=== PATIENT | male | born 1975 | race Caucasian/White ===

== ENCOUNTER 2023-09-18 16:55 | Emergency (ER) | payer MEDICAID, SELFPAY ==
--- NOTE | ~2023-09-18 | XR_ITS ---
EXAMINATION: XR FOOT, RIGHT CLINICAL INFORMATION: Right big toe pain. COMPARISON: None available. TECHNIQUE: AP, lateral, and oblique views of the right foot. FINDINGS: The bones and soft tissues are normal. No fracture. Alignment is anatomic. Joint spaces are maintained. XR/XR foot RT 2V IMPRESSION: Unremarkable right foot exam
[2023-09-18 17:01] VITALS: BP 128/96; PULSE 82; O2SAT 97
[2023-09-18 17:18] VITALS: BP 93/60; PULSE 73; RESP 16; TEMP 36.7; O2SAT 98; BMI 31.0
[2023-09-18 17:28] LABS: Appearance Urine Clear; Color Urine Yellow; Glucose Urine UA Negative (Negative); Leukocyte Esterase Urine Negative (Negative); Nitrite Urine Negative (Negative); PH 5.5 (5.0-9.0); Specific Gravity - Urine >= 1.030 (1.005-1.025); UMIC TRIGGER UACC YES; Urine Blood Trace (Negative); Urine Ketones Trace mg/dL (Negative); Urine Protein Trace mg/dL (Neg-Trace)
[2023-09-18 17:33] LABS: Amphetamine Screen Urine Not Detected (Not Detect); Bacteria Urine None Seen (None Seen); Barbiturates, Urine Not Detected (Not Detect); Benzodiazepines Screen Urine Not Detected (Not Detect); Cannabinoid Screen Urine POSITIVE (Not Detect); Cocaine Screen Urine POSITIVE (Not Detect); Fentanyl, urine Not Detected (Not Detect); Hyaline Casts Urine 0-2 /LPF (0-2); Opiate Screen Urine Not Detected (Not Detect); Phencyclidine Screen Urine Not Detected (Not Detect); Squamous Epithelial Cell Urine 0-2 /HPF (0-2); WBC Urine 0-5 /HPF (0-5)
--- NOTE | 2023-09-18 17:50 | PC.NURSE ---
assumed care of pt at 1720- pt agitated, demanding a room with a television. advised current exam room is the only exam room available at this time. pt stated to nurse dont given me a needle advised pt needs eval before we can give anything. pt requests war blanket, provided. NAHUM Bustillos to bedside explaining treatment. pt then stated he dont understand anything lmsw called to bedside.
--- NOTE | 2023-09-18 17:51 | PC.NURSE ---
per NAHUM Bustillos rec call from karthikeyan betancourt pt refused insulin coverage [employer]
--- NOTE | 2023-09-18 17:59 | ED_ITS ---
HPI - General Adult General Chief complaint: Extremity Injury, Lower Stated complaint: Gout Time Seen by Provider: 09/18/23 17:20 Source: patient Mode of arrival: ambulatory Limitations: no limitations History of Present Illness HPI narrative: 48-year-old male history of diabetes and asthma presents to ED for left big toe pain and swelling for the past 3 days. Patient denies any trauma to extremity. Patient states no fever, chills, leg swelling, calf pain, chest pain, shortness of breath. Patient denies any wounds or lower extremity. Related Data Previous Rx's Medication Instructions Recorded colchicine 0.6 mg capsule 0.6 mg PO BID 4 days #8 caps 09/18/23 indomethacin 50 mg capsule 50 mg PO TID 5 days #15 caps 09/18/23 prednisone 20 mg tablet 40 mg (2 x 20 mg) PO DAILY 5 days 09/18/23 #10 tabs Allergies Allergy/AdvReac Type Severity Reaction Status Date / Time No Known Allergies Allergy Unverified 05/03/20 19:02 [No Known Allergies*] Review of Systems 2 Review of Systems: Right big toe pain Yes all other systems are reviewed and are negative [facility] Social History Social History Advance Directives: No Advance Directives Information Provided: No Physical Exam ED Vital Signs: Vital Signs - 24 hr 09/18/23 17:18 09/18/23 18:48 Temperature 98.1 F 97.8 F Pulse Rate 73 60 Respiratory Rate 16 18 Blood Pressure 93/60 100/66 Pulse Oximetry 98 97 Oxygen Delivery Method Room Air Room Air BMI result Body Mass Index 31.0 Const General: cooperative, healthy appearing, comfortable, no acute distress, well developed, alert, awake and Physically active Orientation/consciousness: oriented to person, oriented to place, oriented to time and patient oriented x3 HENMT Head: Yes normal to inspection, Yes No palpable skull fracture present, Yes normocephalic and Yes atraumatic Eyes General: appearance normal, both eyes and all related structures Neck Neck: Yes normal visual inspection, Yes full ROM, Yes no lymphadenopathy, Yes no meningeal signs, Yes trachea midline, Yes supple, No anterior neck swelling and No tender Chest Chest palpation & inspection: normal inspection of the chest and normal palpation of entire chest wall Resp Effort & Inspection: normal respiratory effort and able to speak in complete sentences Auscultation: clear to auscultation bilaterally Cardio Jugular venous distension: no JVD Heart sounds: S1 normal heart sound present and S2 normal heart sound present GI Inspection: Yes normal to inspection Palpation (GI): Soft to palpation, not firm, nontender, no guarding and not rigid General: Yes no CVA tenderness Back/Spine/Pelvis Back: no CVA tenderness and No back tenderness Skin General skin exam: no rashes or lesions noted, elasticity normal and turgor normal Neuro General: oriented to person, oriented to place, oriented to time, patient oriented x3, gait normal, tone normal, moves all extremities, Normal light touch and pain sensation, no meningeal signs, no focal motor deficits, CN's II-XI intact bilaterally and normal sensation to monofilament Extrem General: Yes normal to inspection, Yes full ROM and Yes capillary refill normal Ankle/foot/toe images: 2 1. positive for tenderness on palpation. Positive for swelling. Negative for erythema. Negative for ulcers, open wounds, pus discharge, foul odor, bluish black discoloration. Motor/neuro /vascular exam of extremity intact. Negative for calf pain or leg swelling. Rest of extremity normal Psych Appearance: grossly normal, well kempt and not disheveled Medications Administered Discontinued Medications Generic Name Dose Route Start Last Admin Trade Name Freq PRN Reason Stop Dose Admin Colchicine 1.2 mg 09/18/23 18:53 09/18/23 19:33 Colchicine 0.6 Mg Tablet PO 09/18/23 18:54 1.2 mg ONCE ONE Administration Indomethacin 50 mg 09/18/23 18:53 09/18/23 19:33 Indomethacin 25 Mg Capsule PO 09/18/23 18:54 50 mg ONCE ONE Administration Prednisone 60 mg 09/18/23 18:53 09/18/23 19:34 Prednisone 20 Mg Tablet PO 09/18/23 18:54 60 mg ONCE ONE Administration Medical Decision Making Medical Decision Making [facility] Narrative: 48-year-old male history diabetes and asthma presents to ED for right big toe pain. Most likely gout. Patient will be sent for x-ray to rule out fracture. 6:59pm: Foot x-ray negative for fracture. Patient will be treated as gout. Patient given 1st dose of indomethacin causes itching and prednisone ordered Differential Diagnosis Differential Diagnoses: The differential diagnosis associated with the presentation includes ( gout, cellulitis, fracture) Admission/Observation Consideration of admission/observation: Escalation of care including admission/observation considered Lab Data [facility] Lab Attestation statement: I reviewed the patient's lab results. Labs: Lab Results 09/18/23 Range/Units 17:15 Urine Color Yellow Urine Appearance Clear Urine pH 5.5 (5.0-9.0) Ur Specific [place] >= 1.030 H (1.005-1.025) Urine Protein Trace (Neg-Trace) mg/dL Urine Glucose (UA) Negative (Negative) mg/dL Urine Ketones Trace (Negative) mg/dL Urine Blood Trace H (Negative) Urine Nitrite Negative (Negative) Ur Leukocyte Esterase Negative (Negative) Urine RBC 6-10 H (0-2) /HPF Urine WBC 0-5 (0-5) /HPF Ur Squamous Epith Cells 0-2 (0-2) /HPF Urine Bacteria None Seen (None Seen) Hyaline Casts 0-2 (0-2) /LPF Urine Opiates Screen Not Detected (Not Detect) Urine Fentanyl Screen Not Detected (Not Detect) Ur Barbiturates Screen Not Detected (Not Detect) Ur Phencyclidine Scrn Not Detected (Not Detect) Ur Amphetamines Screen Not Detected (Not Detect) U Benzodiazepines Scrn Not Detected (Not Detect) Urine Cocaine Screen POSITIVE H (Not Detect) U Marijuana (THC) Screen POSITIVE H (Not Detect) Independent Interpretation I performed an independent interpretation of an: Plain X-Ray Radiology Impression Discussion of test interpretation with radiology: I have reviewed the radiologist's reading. External Record Review External record reviewed: Other (prior visits) Prescription Management I considered prescription management with: Pain Medication Discharge Plan Discharge Clinical Impression: Gout Patient Disposition: Home, Self-Care Instructions: Gout (ED) Additional Instructions: recommend follow-up with your primary care. return to the ED immediately for worsening pain, swelling he, redness, inability to walk, open wounds, pus discharge, foul odor, ulcers, fever, chills, or any other concerning symptoms. Prescriptions: New indomethacin 50 mg capsule 50 mg PO TID 5 Days Qty: 15 0RF Rx Instructions: administer with food or milk prednisone 20 mg tablet 40 mg PO DAILY 5 Days Qty: 10 0RF colchicine 0.6 mg capsule 0.6 mg PO BID 4 Days Qty: 8 0RF Interventions: ED Discharge Assessment Last Done: 09/18/23 21:32 Discharge Date/Time: 09/18/23 21:33 Print Language: Mongolian
--- NOTE | 2023-09-18 18:13 | PC.NURSE ---
attempted to offer pt food/beverage. pt did not repond to nurse, and covered head with blanket. care ongoing.
[2023-09-18 18:48] VITALS: BP 100/66; PULSE 60; RESP 18; TEMP 36.6; O2SAT 97
[2023-09-18] MEDS: Colchicine 0.6 MG TABLET 1.2 MG PO (19:33)
[2023-09-18] MEDS: Indomethacin 25 MG CAPSULE 50 MG PO (19:33)
[2023-09-18] MEDS: predniSONE 20 MG TABLET 60 MG PO (19:34)
== END 2023-09-18 21:33 | disposition home or self-care (01) ==
PROVIDERS: Emergency Provider Emergency Medicine Emergency Medical Services
DX: M10.072 Idiopathic gout, left ankle and foot (principal); Z79.899 Other long term (current) drug therapy
CPT/HCPCS: 73620; 80307; 81001; 99283